=== PATIENT | female | born 1955 | race Caucasian/White ===

== ENCOUNTER 2020-03-03 13:19 | Emergency (ER) | payer OTHER ==
[~2020-03-03] VITALS: Ht 160 cm; Wt 866.8 kg
[2020-03-03 13:25] VITALS: Ht 160 cm; Wt 866.8 kg
[2020-03-03 14:37] VITALS: BP 141/71
== END 2020-03-03 14:37 | disposition home or self-care (01) ==
LOC: ED 13:19
DX: M54.5 Low back pain (principal); Z90.49 Acquired absence of other specified parts of digestive tract; Z88.6 Allergy status to analgesic agent
CPT/HCPCS: 87491; 87591